=== PATIENT | female | born 1960 | race Caucasian/White ===

== ENCOUNTER 2022-07-31 16:45 | Outpatient (CLI) | payer OTHER, BC, SELFPAY | END 2022-07-31 16:46 | disposition home or self-care (01) | LOC: NFLDREF 08-03 09:04 | PROVIDERS: PCP Physician Assistant; Referring Provider Physician Assistant; Visit Provider Nurse Practitioner Family | DX: R30.0 Dysuria (principal); N39.0 Urinary tract infection, site not specified | CPT/HCPCS: 87086; 87186 ==

== ENCOUNTER 2023-05-21 17:49 | Emergency (ER) | payer OTHER, BC, SELFPAY ==
[2023-05-21 18:03] VITALS: BP 142/92; PULSE 104; RESP 16; TEMP 36.6; O2SAT 98; BMI 23.9
--- NOTE | 2023-05-21 18:19 | US_ITS ---
Patient: RANDY ISRAEL Facility:?[facility] Patient ID:?[id number] Site Patient ID:?[id number]. Site :?[id number] Study:?US-Extremity Left LEV-05/21/2023 8:06:19 PM Ordering Physician:?Dr. Powers Final Report: Indication: Pain and swelling of left lower extremity Technique: Venous duplex ultrasound of the left lower extremity, deep vein thrombosis protocol, utilizing compression with grayscale and color and spectral Doppler. Comparison: None Findings: No deep vein thrombosis in the left common femoral, deep femoral, superficial femoral, popliteal, peroneal, or posterior tibial veins. No visualized superficial vein thrombosis. Sonographic evaluation of the soft tissues at area of reported pain along the medial calf demonstrates no abnormalities. Impression: No deep vein thrombosis in the left lower extremity. Dictated by Guillermo Stein MD @ 05/21/2023 8:40:59 PM Signed by:?Guillermo Stein MD @05/21/2023 8:40:59 PM
--- NOTE | 2023-05-21 18:20 | ED.GENADULT ---
HPI - General Adult General Chief complaint: Lower Extremity Swelling Stated complaint: swollen/painful L leg Time Seen by Provider: 05/21/23 17:56 History of Present Illness HPI narrative: This 62-year-old female comes in reporting left lower leg pain and swelling. She does not report any specific injury event. She states that the pain is constant and now her left lower leg is swollen. She states that the pain seemed to occur 1st behind her left knee. She does not have any history of thrombosis and is not on any anticoagulants. She does not report any chest pain or shortness of breath. Related Data Home Medications Medication Instructions Recorded Confirmed escitalopram oxalate 20 mg tablet 20 mg PO DAILY 07/31/22 07/31/22 gabapentin 300 mg capsule mg PO 07/31/22 07/31/22 levothyroxine 50 mcg tablet 50 mcg PO DAILY 07/31/22 07/31/22 Previous Rx's Medication Instructions Recorded sulfamethoxazole 800 1 tab PO BID #6 tabs 07/31/22 mg-trimethoprim 160 mg tablet (Bactrim DS) Allergies Allergy/AdvReac Type Severity Reaction Status Date / Time No Known Drug Allergies Allergy Verified 07/31/22 19:31 Review of Systems Status of ROS: Reports: 10 or more systems reviewed and unremarkable except as noted in History and below Narrative: Constitutional: No fevers, no weight gain or loss. Eyes: No discharge. No vision changes. HENT: No congestion, no sore throat, no ear pain. Cardiovascular: No chest pain, no palpitations. Respiratory: No shortness of breath, no wheezes, no cough. Gastrointestinal: No abdominal pain, no vomiting, no diarrhea. Genitourinary: No dysuria, no hematuria. Musculoskeletal: Normal range of motion. Left lower extremity pain and swelling as described above. Skin: No rashes, no pruritis. Neurological: No dizziness, weakness, sensory change, speech change. Endo/Heme/Allergies: No bruising or bleeding. No polydipsia. Pysch: no suicidality, no anxiety, no insomnia. All other systems reviewed and are negative. [facility] Medical History (Updated 05/21/23 @ 20:20 by Bradley Powers MD) Urinary tract infection ?N39.0 - Urinary tract infection, site not specified (ICD-10) Social History Smoking Status: Never smoker Exam Narrative: Exam Narrative: Constitutional: Well-developed, well-nourished, no acute distress. HEENT: Normocephalic, atraumatic. Neck: Normal range of motion. Nontender. Supple. Heart: Regular. No murmurs. Normal rate. Intact distal pulses. Lungs: Clear to auscultation. No chest discomfort. No wheezes, rhonchi, or rales. Abdomen: Normal bowel sounds. Nontender. No rebound tenderness. Genitalia: Deferred. Back: No midline tenderness. Normal range of motion. Extremities: Normal range of motion. Left lower extremity is clearly larger than the right extending from the knee down to the ankle. Diffuse pain in this area. No erythema. No external sign of injury. Skin: Intact. No rash. Warm. No erythema or pallor. Neurologic: No altered sensation. No weakness. Alert and oriented. Psychiatric: No suicidality. No anxiety or depression. No insomnia. Nursing notes and vitals signs are reviewed. Const: Vital Signs, click to edit/add: Vital Signs - 24 hr 05/21/23 18:03 Temperature 97.8 F Pulse Rate [Pulse Oximeter] 104 H Respiratory Rate 16 Blood Pressure [Ri ght Upper Arm] 142/92 H Pulse Oximetry 98 Oxygen Delivery Me thod Room Air Course Vital Signs Vital signs: Initial Vital Signs Temperature 97.8 F 05/21/23 18:03 Temperature Source Temporal Artery Scan 05/21/23 18:03 Pulse Rate 104 H 05/21/23 18:03 Pulse Rhythm Regular 05/21/23 18:03 Respiratory Rate 16 05/21/23 18:03 Blood Pressure 142/92 H 05/21/23 18:03 Blood Pressure Mean 108 H 05/21/23 18:03 Blood Pressure Position Sitting 05/21/23 18:03 Pulse Oximetry 98 05/21/23 18:03 Oxygen Delivery Method Room Air 05/21/23 18:03 Vital Signs Temperature 97.8 F 05/21/23 18:03 Pulse Rate 104 H 05/21/23 18:03 Respiratory Rate 16 05/21/23 18:03 Blood Pressure 142/92 H 05/21/23 18:03 Pulse Oximetry 98 05/21/23 18:03 Oxygen Delivery Method Room Air 05/21/23 18:03 Temperature 97.8 F 05/21/23 18:03 Pulse Rate 104 H 05/21/23 18:03 Respiratory Rate 16 05/21/23 18:03 Blood Pressure 142/92 H 05/21/23 18:03 Pulse Oximetry 98 05/21/23 18:03 Oxygen Delivery Method Room Air 05/21/23 18:03 Medical Decision Making MDM Narrative Medical decision making narrative: This patient comes in with pain and swelling in her left lower extremity from her knee down into her foot. She does not have any history of blood clots. An ultrasound is obtained which shows no sign of venous thrombosis. Nor is there any evidence of V[place] cyst or other drainage from her knee joint. The patient does have varicose veins and likely is having some edema from venous insufficiency. She does report some sciatica pain but this would not typically cause swelling in her leg. She does have a follow-up appointment next week in this regard. The patient received an Miko wrap for some compression is encouraged to keep her leg elevated. I advised her to follow-up with clinic appointment as scheduled or consider a vein clinic for further evaluation and treatment. She did receive a prescription for Toradol. Discharge Plan Discharge Clinical Impression: Acute leg pain Patient Disposition: Home, Self-Care Condition: Stable Additional Instructions: Take medication as prescribed and needed. Wear compression Miko wrap or stockings and keep leg elevated. Follow up with clinic appointment as scheduled or return if worsening. Prescriptions: No Action gabapentin 300 mg capsule PO levothyroxine 50 mcg tablet 50 mcg PO DAILY escitalopram oxalate 20 mg tablet 20 mg PO DAILY sulfamethoxazole-trimethoprim [Bactrim DS] 800-160 mg tablet 1 tab PO BID Qty: 6 0RF Follow Up/Referrals: Sharyn Simon PA [Primary Care Provider] - Stand Alone Forms: [employer] Security Info Instructions
== END 2023-05-21 20:25 | disposition home or self-care (01) ==
PROVIDERS: Emergency Provider Emergency Medicine Emergency Medical Services; PCP Physician Assistant
DX: M79.662 Pain in left lower leg (principal)
CPT/HCPCS: 93971; 99283; 99284

== ENCOUNTER 2024-04-28 07:56 | Outpatient (CLI) | payer OTHER, BC, SELFPAY | END 2024-04-28 07:57 | disposition home or self-care (01) | LOC: INJ CL 08:00 | PROVIDERS: PCP Internal Medicine; Visit Provider Family Medicine | DX: M54.16 Radiculopathy, lumbar region (principal); M51.369 Other intervertebral disc degeneration, lumbar region without mention of lumbar back pain or lower extremity pain | CPT/HCPCS: 62323; J0702; Q9966 ==